=== PATIENT | male | born 1995 | race Caucasian/White ===

== ENCOUNTER 2020-04-08 02:12 | Emergency (ER) | payer OTHER ==
[2020-04-08] MEDS ORDERED: DIPHENHYDRAMINE HCL 50 MG/ML VIAL IV ONE (05:02)
[2020-04-08] MEDS ORDERED: METHYLPREDNISOLONE INJ 125 MG/2 ML SDV IV ONE (05:02)
[2020-04-08] MEDS ORDERED: FAMOTIDINE INJ/PF 20 MG/2 ML SDV IV ONE (05:02)
--- NOTE | 2020-04-08 05:03 | ER Document Report ---
ED General - General Chief Complaint: Allergy Symptoms Stated Complaint: POSSIBLE ALLERGIC REACTION/RASH Time Seen by Provider: 04/08/20 04:57 Primary Care Provider: MARGE MACK MD [HONORARY] - Follow up as needed - HPI Context: This is a 24-year-old male presenting to the emergency department complaining of diffuse rash and itching that started at 1830 hrs. yesterday. Patient denies change in detergents, new soaps, colognes, or other allergen sources. Patient states that he tried just taking some Benadryl at home but got concerned when his rash became diffuse, involving his trunk back and upper and lower extremities. Patient denies shortness of breath or sensation of throat tightening or swelling. Patient denies history of acute allergic reactions. Patient denies taking any new medications or supplements. Patient denies history of COVID-19 infection, known exposure to COVID-19 positive individuals or exposure to persons under investigation for Covid. Patient denies pain. Patient states he has not really found any alleviating factors despite taking oral Benadryl at home. And patient denies any exacerbating factors. Associated symptoms: Other - See HPI Exacerbated by: Other - See HPI Relieved by: Other - See HPI - Related Data Allergies/Adverse Reactions: No Known Allergies Allergy (Unverified 04/08/20 04:54) Past Medical History - General Information source: Patient - Social History Smoking Status: Current Every Day Smoker Family History: Reviewed & Not Pertinent Patient has suicidal ideation: No Patient has homicidal ideation: No Review of Systems - Review of Systems Notes: Review of systems as below unless otherwise stated in HPI. CONSTITUTIONAL [No] fever, [No] chills. EYES [No] eye pain. ENT [No] URI symptoms, [No] sore throat, [No] ear pain. CARDIOVASCULAR [No] chest pain, [No] palpitations, [No] edema. RESPIRATORY [No] Cough, [No] SOB, [No] wheezing. GASTROINTESTINAL [No] abdominal pain, [No] nausea, [No] Diarrhea, [No] Vomiting, [No] constipation, [No] melena, [No] rectal bleeding. GENITOURINARY [No] dysuria, [No] urinary frequency, [No] hematuria, [No] urinary urgency MUSCULOSKELETAL [No] Back pain. SKIN [+] Rash. NEUROLOGIC [No] Headache, [No] recent seizures, [No] paralysis,[No] parathesias. ENDOCRINE [No] polyuria. HEMO/LYMPATIC [No] easy brusing PSYCHIATRIC [No] depression. Physical Exam - Vital signs Vitals: Temp Pulse Resp BP Pulse Ox 98.1 F 80 16 133/88 H 98 04/08/20 02:20 04/08/20 02:20 04/08/20 02:20 04/08/20 02:20 04/08/20 02:20 - Notes Notes: CONSTITUTIONAL [Vital signs reviewed, Patient appears uncomfortable, Alert and oriented X 3, Normal stature.] HEAD [Atraumatic, Normocephalic.] EYES [Eyes are normal to inspection, No discharge from eyes, Extraocular muscles intact, Sclera are normal, Conjunctiva are normal.] ENT [External ears normal to inspection, Nose examination normal, posterior o ropharynx normal to inspection, mouth normal to inspection.] NECK [Normal ROM, No jugular venous distention, No meningeal signs, ] RESPIRATORY CHEST [Chest is nontender, Breath sounds normal, No respiratory distress.] CARDIOVASCULAR [RRR, No murmurs, Normal S1 S2, No rub, No gallop.] ABDOMEN [Abdomen is nontender, No pulsatile masses, No other masses, Bowel sounds normal, No distension, No peritoneal signs, No hernias.] BACK [There is no CVA Tenderness, There is no tenderness to palpation, Normal inspection.] UPPER EXTREMITY [Inspection normal, No cyanosis, No clubbing, No edema, LOWER EXTREMITY [Inspection normal, No cyanosis, No clubbing, No edema, No calf tenderness, NEURO [No focal motor deficits, No focal sensory deficits, Speech normal.] SKIN Patient has a diffuse serpentine rash on his arms, chest, back and upper legs. Rash is erythematous and edematous, appearance which is consistent with hives.] PSYCHIATRIC [Normal affect. ] Course - Re-evaluation Re-evalutation: 04/08/20 07:14 Patient states he is starting to feel little bit better after being given Solu- Medrol, Benadryl and Pepcid. When asked if all questions were answered and all concerns addressed during this visit patient answered in the affirmative. Emergency signs and symptoms, reasons to return to the emergency department discussed with patient. Patient instructed to always keep an EpiPen on his person at all times. - Vital Signs Vital signs: Temp Pulse Resp BP Pulse Ox 98.1 F 83 23 H 130/103 H 99 04/08/20 02:20 04/08/20 04:54 04/08/20 06:01 04/08/20 06:00 04/08/20 06:01 Discharge - Discharge Clinical Impression: Acute allergic reaction Qualifiers: Encounter type: initial encounter Qualified Code(s): T78.40XA - Allergy, unspecified, initial encounter Condition: Stable Disposition: HOME, SELF-CARE Instructions: Acute Allergic Reaction ([facility]), Use of Diphenhydramine Additional Instructions: Return to the Emergency Department without delay if any worse. You can take 50 mg of Benadryl every 4-6 hours as needed for itching. Remember to always carry an EpiPen on your person at all times. Epinephrine An injection of epinephrine (also called adrenalin) is used to treat allergic reactions, asthma, and some other medical conditions. It is a stimulant medication that consticts blood vessels, relaxes smooth muscles such as in the bronchioles of the lung, elevates blood pressure, and increases heart rate. It can temporarily make you feel very nervous and shakey, but it's affects last only a short time, about 15 to 30 minutes at most. HOME CARE INSTRUCTIONS & INFORMATION: Thank you for choosing us for your medical needs. We hope you're satisfied with the care you received. After you leave, you must properly care for your problem and, at the same time, observe its progress. Any condition can change. Some illnesses can change rapidly over hours or days. If your condition worsens, return to the Emergency Department or see your physician promptly. ABOUT YOUR X-RAYS AND EKG'S: If you had an EKG or X-rays taken, they have been read by the Emergency Physician. The X-rays and EKG's will also be read by a Radiologist or Coal Handling Supervisor within 24 hours. If discrepancies are noted, you will be notified by telephone. Please be certain the ED has a correct telephone number & address where you can be reached. Also, realize that some fractures or abnormalities do not show up on initial X-rays. If your symptoms continue, see your physician. ABOUT YOUR LABORATORY TEST: If you had laboratory tests, the results have been reviewed by the Emergency Physician. Some test results (for example cultures) may not be available for several days. You will be contacted if any test result shows you need additional treatment. Please be certain the ED has a correct telephone number and address where you can be reached. ABOUT YOUR MEDICATIONS: You will receive instructions on how to take your medicine on the prescription label you receive. Additional information may be provided by the Pharmacy. If you have questions afterwards, call the ED for clarification or further instructions. Some prescribed medications may cause drowsiness. Do not perform tasks such as driving a car or operating machinery without consulting your Pharmacist. If you feel you need a refill of pain medication, your condition will need re-evaluation. Please do not call for a refill of any medication. ABOUT YOUR SIGNATURE: Signature of this document acknowledges to followin. Understanding that you received emergency treatment and that you may be released before al medical problems are known or treated. Please be certain the ED has a correct phone number & address where you can be reached. 2. Acknowledgement that you will arrange for follow-up care as recommended. 3. Authorization for the Emergency Physician to provide information to your follow-up Physician in order to maximize your care. AT ANY TIME, IF YOUR SYMPTOMS CHANGE SIGNIFICANTLY OR WORSEN OR YOU DEVELOP NEW SYMPTOMS, RETURN TO THE EMERGENCY DEPARTMENT IMMEDIATELY FOR RE-EVALUATION. OUR GOAL IS TO PROVIDE EXCELLENT MEDICAL CARE! WE HOPE THAT WE HAVE MET YOUR EXPECTATIONS DURING YOUR EMERGENCY DEPARTMENT VIS IT AND THAT YOU FEEL YOU HAVE RECEIVED EXCELLENT CARE! Prescriptions: Prednisone [Deltasone 20 mg Tablet] 3 tab PO DAILY 2 Days #6 tablet Epinephrine [Epipen 2-Jordi] 0.3 mg IM ONCE PRN #1 packet PRN Reason: Allergic reaction Forms: Return to Work Referrals: MARGE MACK MD [HONORARY] - Follow up as needed
[2020-04-08 07:20] VITALS: BP 123/79
== END 2020-04-08 07:21 | disposition home or self-care (01) ==
LOC: ER 02:12
DX: T78.40XA Allergy, unspecified, initial encounter (principal); F17.200 Nicotine dependence, unspecified, uncomplicated
CPT/HCPCS: 99284; 96374; 96375; J1200; J2930; S0028

== ENCOUNTER 2020-04-08 22:25 | Emergency (ER) | payer OTHER ==
[2020-04-09] MEDS ORDERED: IPRATROPIUM/ALBUTEROL 0.5-2.5 MG/3 ML AMPUL NEB ONE (00:05)
--- NOTE | 2020-04-09 00:08 | ER Document Report ---
ED Medical Screen (RME) - General Chief Complaint: Allergic Reaction Stated Complaint: RASH Time Seen by Provider: 04/09/20 00:00 Mode of Arrival: Ambulatory Information source: Patient Notes: HPI; 24-year-old male presents emergency room complaining of worsening rash and states "I cannot get a full breath" patient was here last night for new onset of rash was given Solu-Medrol, Pepcid, Benadryl, epinephrine symptoms slightly improved. States he took Benadryl and prednisone earlier this evening without relief. States he feels like the rash is worse it is now spreading to his face. He denies difficulty breathing difficulty swallowing. No history of previous allergic reactions. No recent antibiotics. PE: Alert and oriented x3. Lungs: Expiratory wheezes no rales no rhonchi. Hear t: Regular rate rhythm without murmurs, rubs, gallops. Patient with a diffuse erythematous rash to the trunk, face, neck, bilateral upper extremities. Unable to do full assessment in triage. Nonblanching charge nurse notified patient be taken directly to the back. I have greeted and performed a rapid initial assessment of this patient. A comprehensive ED assessment and evaluation of the patient, analysis of test results and completion of the medical decision making process will be conducted by additional ED providers. I have specifically instructed the patient or family members with the patient to immediately return to any nursing staff should anything change in the patient's condition or with their chief complaint. TRAVEL OUTSIDE OF THE [place] IN LAST 30 DAYS: No - Related Data Allergies/Adverse Reactions: No Known Allergies Allergy (Unverified 04/08/20 04:54) Physical Exam - Vital signs Vitals: Temp Pulse Resp BP Pulse Ox 98.3 F 104 H 18 154/95 H 97 04/08/20 22:35 04/08/20 22:35 04/08/20 22:35 04/08/20 22:35 04/08/20 22:35 Course - Vital Signs Vital signs: Temp Pulse Resp BP Pulse Ox 98.3 F 104 H 18 154/95 H 97 04/08/20 22:35 04/08/20 22:35 04/08/20 22:35 04/08/20 22:35 04/08/20 22:35
[2020-04-09 00:35] LABS: ABSOLUTE MONOCYTES (AUTO) 0.7 10^3/uL (0.1-1.4); ABSOLUTE NEUT (AUTO) 8.7 10^3/uL (1.7-8.2); BASOPHILS % (AUTO) 0.1 % (0-2); HEMATOCRIT 48.4 % (37.9-51.0); HEMOGLOBIN 17.2 g/dL (13.5-17.0); LYMPHOCYTES % (AUTO) 9.8 % (13-45); MEAN CORPUSCULAR HEMOGLOBIN 32.3 pg (27.0-33.4); MEAN CORPUSCULAR HGB CONC 35.5 g/dL (32.0-36.0); MEAN CORPUSCULAR VOLUME 91 fl (80-97); MONOCYTES % (AUTO) 6.6 % (3-13); PLATELET COUNT 225 10^3/uL (150-450); RED BLOOD COUNT 5.32 10^6/uL (4.35-5.55); RED CELL DISTRIBUTION WIDTH 12.2 % (11.5-14.0); SEGMENTED NEUTROPHILS % (AUTO) 83.5 % (42-78); TOTAL CELLS COUNTED % (AUTO) 100 %; WHITE BLOOD COUNT 10.5 10^3/uL (4.0-10.5)
--- NOTE | 2020-04-09 01:06 | RADIOLOGY REPORT (SQ) ---
EXAM DESCRIPTION: CHEST SINGLE VIEW CLINICAL HISTORY: 24 years Male, wheezing COMPARISON: None. FINDINGS: Exam is overpenetrated. Lungs: Lungs are clear. No pneumonia or edema. No pneumothorax or pleural effusion. Mediastinum: Cardiac and mediastinal silhouette are normal. Bones: Osseous structures are normal. IMPRESSION: No acute process
[2020-04-09] MEDS ORDERED: METHYLPREDNISOLONE INJ 125 MG/2 ML SDV IV ONE (01:07)
[2020-04-09] MEDS ORDERED: DIPHENHYDRAMINE HCL 50 MG/ML VIAL IV ONE (01:08)
[2020-04-09] MEDS ORDERED: FAMOTIDINE INJ/PF 20 MG/2 ML SDV IV ONE (01:08)
--- NOTE | 2020-04-09 01:09 | ER Document Report ---
ED General - General Chief Complaint: Allergic Reaction Stated Complaint: RASH Time Seen by Provider: 04/09/20 00:00 Primary Care Provider: GAIL WILLAMS MD [ACTIVE STAFF] - Follow up as needed Mode of Arrival: Ambulatory TRAVEL OUTSIDE OF THE [place] IN LAST 30 DAYS: No - HPI Notes: Patient is a 24-year-old who presents emergency department for evaluation of hives. This is a second visit. He was seen here yesterday. He denied any new known exposures. [place] was treated with Solu-Medrol, Pepcid, Benadryl. He had significant clearing, but his symptoms returned once he returned back to the hotel room. He states that he used a new shampoo, but has not used it again since his reaction, and it has worsened again. He also thought that perhaps something in the room, including a possible mold, was contributing to his symptoms. He states that multiple other guests in the hotel of had to change rooms secondary to "swelling in the face" and other symptoms. He denies any swelling of his mouth, tongue, or throat. No difficulty breathing, speaking, or swallowing. He has been taking the medications as prescribed. - Related Data Allergies/Adverse Reactions: No Known Allergies Allergy (Unverified 04/08/20 04:54) Home Medications: prednisone, benadryl Past Medical History - General Information source: Patient - Social History Smoking Status: Current Every Day Smoker - Vaping Drug Abuse: None Family History: Reviewed & Not Pertinent Past Surgical History: Reports: Hx Herniorrhaphy, Hx Oral Surgery, Hx Orthopedic Surgery Review of Systems - Review of Systems Constitutional: No symptoms reported EENT: No symptoms reported Cardiovascular: No symptoms reported Respiratory: No symptoms reported Gastrointestinal: No symptoms reported Genitourinary: No symptoms reported Musculoskeletal: No symptoms reported Skin: See HPI Neurological/Psychological: No symptoms reported -: Yes All other systems reviewed and negative Physical Exam - Vital signs Vitals: Temp Pulse Resp BP Pulse Ox 98.3 F 104 H 18 154/95 H 97 04/08/20 22:35 04/08/20 22:35 04/08/20 22:35 04/08/20 22:35 04/08/20 22:35 - Notes Notes: Vital signs reviewed, please refer to chart. Head is normocephalic, atraumatic. Pupils equal round, reactive to light. Oral mucosa is moist. There is no edema noted about the lips, tongue, or posterior pharynx. Neck is supple without meningismus. Heart is regular rate and rhythm. Lungs are clear to auscultation bilaterally. Abdomen is soft, nontender, normoactive bowel sounds throughout. Extremities without cyanosis, clubbing. Posterior calves are nontender. Peripheral pulses are equal. Skin is warm and dry. Urticaria noted over the anterior chest wall, arms, posterior thorax, chest. Patient is awake, alert, neurological exam is nonfocal. Course - Re-evaluation Re-evalutation: 04/09/20 01:11 Patient presents to the emergency department for evaluation. He was initially seen through triage. They ordered DuoNeb. Neither myself nor nursing has auscultated any wheezing in this patient. He is oxygenating well. I will treat him with Solu-Medrol, Pepcid, Benadryl. He will be monitored. The patient was hoping for allergy testing. I explained that that was impossible through the emergency department. I will review his prednisone dose from discharge, we will continue to monitor. 04/09/20 02:38 Patient's hives have improved. He is not wheezing. He is already on appropriate dose of steroids. He is advised to take Benadryl [id number]. He is also advised to take Pepcid at home. He has requested referral on to allergy. I explained to him that I could not officially refer, but there is an media assistant in [facility], name was given on discharge papers. He is to return to the emergency department with worsening or new concerning symptoms of any sort. 04/09/20 02:49 Hyperglycemia was noted on labs. This is secondary to the steroids. I am not overly concerned about this at this time. - Vital Signs Vital signs: Temp Pulse Resp BP Pulse Ox 98.3 F 104 H 18 136/83 H 97 04/08/20 22:35 04/08/20 22:35 04/08/20 22:35 04/09/20 02:01 04/09/20 02:01 - Laboratory Result Diagrams: 04/09/20 00:15 04/09/20 00:15 Laboratory results interpreted by me: 04/09/20 04/09/20 00:15 00:15 Hgb 17.2 H Lymph % (Auto) 9.8 L Absolute Neuts (auto) 8.7 H Seg Neutrophils % 83.5 H Glucose 229 H Calcium 10.4 H - Diagnostic Test Radiology reviewed: Reports reviewed Discharge - Discharge Clinical Impression: Acute allergic reaction Qualifiers: Encounter type: subsequent encounter Qualified Code(s): T78.40XD - Allergy, u nspecified, subsequent encounter Condition: Stable Disposition: HOME, SELF-CARE Instructions: Acute Allergic Reaction ([facility]) Additional Instructions: Continue Benadryl and steroids as instructed. Follow-up with primary care and allergy. Return to the emergency department for worsening or new concerning symptoms of any sort. Referrals: GAIL WILLAMS MD [ACTIVE STAFF] - Follow up as needed
[2020-04-09 01:37] LABS: ALBUMIN 4.6 g/dL (3.5-5.0); ALKALINE PHOSPHATASE 60 U/L (38-126); ANION GAP 14 (5-19); ASPARTATE AMINO TRANSFERASE 24 U/L (17-59); BILIRUBIN,DIRECT 0.1 mg/dL (0.0-0.4); BILIRUBIN,TOTAL 1.3 mg/dL (0.2-1.3); BLOOD UREA NITROGEN 10 mg/dL (7-20); CALCIUM 10.4 mg/dL (8.4-10.2); CARBON DIOXIDE 23 mmol/L (22-30); CHLORIDE 101 mmol/L (98-107); GLUCOSE 229 mg/dL (75-110); TOTAL PROTEIN 7.5 g/dL (6.3-8.2)
[2020-04-09 03:28] VITALS: BP 136/83
== END 2020-04-09 02:55 | disposition home or self-care (01) ==
LOC: ER 22:25
DX: T78.40XA Allergy, unspecified, initial encounter (principal); L50.9 Urticaria, unspecified; R73.9 Hyperglycemia, unspecified; T38.0X5A Adverse effect of glucocorticoids and synthetic analogues, initial encounter; F17.290 Nicotine dependence, other tobacco product, uncomplicated; R09.89 Other specified symptoms and signs involving the circulatory and respiratory systems
CPT/HCPCS: 94640; 99284; 96374; 96375; 36415; 85025; 80053; 71045; J1200; J2930; S0028